=== PATIENT | male | born 1960 | race Caucasian/White ===

== ENCOUNTER → 2019-12-30 | Outpatient (CLI) | payer BC ==
[~2019-12-30] MED LIST: CATHETER FLUSH 10 ML SYR IV PRN
--- NOTE | 2019-12-30 13:07 | Diagnostic Imaging Report ---
INDICATION: Right upper quadrant pain. TECHNIQUE: The patient was administered 5.1 mCi of technetium 99m Choletec intravenously and imaging over the abdomen was performed. At 1 hour, the patient ingested one can of Ensure and a gallbladder ejection fraction was calculated. FINDINGS: There is homogeneous uptake of activity by the liver. Prompt excretion of activity into the gallbladder and common duct is noted. There is normal passage of activity into the small bowel. The gallbladder ejection fraction is 91%. IMPRESSION: 1. Patent cystic duct and common bile duct. 2. Gallbladder ejection fraction of 91%. Dictated by: Dictated on workstation # [id number]
== END ==
LOC: CARD 09:30
PROVIDERS: ATTEND Family Medicine
DX: R10.11 Right upper quadrant pain (principal)
CPT/HCPCS: 78227; A9537

== ENCOUNTER 2021-01-29 13:46 | Emergency (ER) | payer BC ==
[~2021-01-29] VITALS: Ht 180.3 cm; Wt 69.4 kg
[2021-01-29] MEDS ORDERED: PANTOPRAZOLE 40 MG (PROTONIX) VIAL IV STA (13:59)
[2021-01-29] MEDS ORDERED: fentaNYL INJ 100 MCG/2 ML AMP IVP STA (13:59)
[2021-01-29] MEDS ORDERED: NITROGLYCERIN 2% OINT 1 GM UNIT DOSE PACKET TOP STA (13:59)
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
[2021-01-29 14:20] LABS: MEAN CORPUSCULAR HEMOGLOBIN 29 pg (25-34); WHITE BLOOD COUNT 7.4 10^3/uL (4.3-11.0)
[2021-01-29 14:21] LABS: BASOPHILS % (AUTO) 1 % (0-10); EOSINOPHILS % (AUTO) 14 % (0-10); HEMATOCRIT 38 % (40-54); LYMPHOCYTES % (AUTO) 26 % (12-44); MEAN CORPUSCULAR HGB CONC 34 g/dL (32-36); MEAN CORPUSCULAR VOLUME 87 fL (80-99); MEAN PLATELET VOLUME 11.1 fL (9.0-12.2); MONOCYTES # (AUTO) 0.6 X 10^3 (0.0-1.0); MONOCYTES % (AUTO) 8 % (0-12); NEUTROPHILS # (AUTO) 3.7 X 10^3 (1.8-7.8); NEUTROPHILS % (AUTO) 50 % (42-75); PLATELET COUNT 207 10^3/uL (130-400)
[2021-01-29 14:22] LABS: BASOPHILS # (AUTO) 0.1 10^3/uL (0.0-0.1); EOSINOPHILS # (AUTO) 1.1 10^3/uL (0.0-0.3)
[2021-01-29 14:37] LABS: BAND NEUTROPHILS 1 %; BASOPHILS % (MANUAL) 2 %; EOSINOPHILS % (MANUAL) 13 %; LYMPHOCYTES % (MANUAL) 31 %; MONOCYTES % (MANUAL) 4 %; NEUTROPHILS % (MANUAL) 48 %
[2021-01-29 14:38] LABS: PLATELET ESTIMATE ADEQUATE; RBC MORPH NORMAL
[2021-01-29 14:41] LABS: CARBON DIOXIDE 25 MMOL/L (21-32); CHLORIDE 104 MMOL/L (98-107); POTASSIUM 3.3 MMOL/L (3.6-5.0); SODIUM 138 MMOL/L (135-145)
[2021-01-29 14:42] LABS: ALANINE AMINOTRANSFERASE 19 U/L (0-55); ALBUMIN 3.9 GM/DL (3.2-4.5); ALKALINE PHOSPHATASE 166 U/L (40-136); BILIRUBIN,TOTAL 0.5 MG/DL (0.1-1.0); BUN/CREATININE RATIO 7; CALCIUM 8.5 MG/DL (8.5-10.1); CREATININE SERUM 1.35 MG/DL (0.60-1.30); GFR ESTIMATED 54; GLUCOSE 102 MG/DL (70-105); MAGNESIUM 1.9 MG/DL (1.6-2.4); TOTAL PROTEIN 6.2 GM/DL (6.4-8.2)
[2021-01-29 14:43] LABS: LIPASE 37 U/L (8-78)
[2021-01-29 14:47] LABS: INR 1.1 (0.8-1.4); PROTHROMBIN TIME PATIENT 14.1 SEC (12.2-14.7)
[2021-01-29 14:59] LABS: CLARITY,URINE CLEAR; COLOR,URINE PALE YELLOW
[2021-01-29 15:01] LABS: AMPHETAMINE SCREEN, URINE NEGATIVE (NEGATIVE); BACTERIA,URINE NEGATIVE /HPF; BARBITURATE SCREEN URINE NEGATIVE (NEGATIVE); BENZODIAZEPINES SCREEN URINE NEGATIVE (NEGATIVE); BILIRUBIN,URINE NEGATIVE (NEGATIVE); CANNABINOID SCREEN, URINE NEGATIVE (NEGATIVE); COCAINE SCREEN URINE NEGATIVE (NEGATIVE); GLUCOSE, URINE (UA) NEGATIVE (NEGATIVE); KETONES,URINE NEGATIVE (NEGATIVE); LEUKOCYTE ESTERASE ,URINE NEGATIVE (NEGATIVE); METHADONE STAT NEGATIVE (NEGATIVE); METHAMPHETAMINE SCREEN URINE S NEGATIVE (NEGATIVE); NITRITE,URINE NEGATIVE (NEGATIVE); OPIATE SCREEN URINE NEGATIVE (NEGATIVE); PH,URINE 5.5 (5-9); PROTEIN,URINE NEGATIVE (NEGATIVE); SQUAMOUS EPITHELIAL CELL,UR 0-2 /HPF; TRICYCLIC ANTIDEPRESSANTS SCRE NEGATIVE (NEGATIVE); WBC,URINE 0-2 /HPF
[2021-01-29 15:02] LABS: OXYCODONE STAT NEGATIVE (NEGATIVE); PROPOXYPHENE STAT NEGATIVE (NEGATIVE)
--- NOTE | 2021-01-29 15:20 | Diagnostic Imaging Report ---
INDICATION: Chest pain COMPARISON: 03/10/2015. FINDINGS: Single frontal view of the chest demonstrates normal heart size and pulmonary vascularity. Left-sided dual-lead pacemaker is noted. The lungs are well aerated and clear. No large pleural effusion or pneumothorax is seen. The visualized osseous structures show no acute abnormality. IMPRESSION: No acute cardiopulmonary process. Dictated by: Dictated on workstation # [id number]
--- NOTE | 2021-01-29 16:08 | Diagnostic Imaging Report ---
INDICATION: Dysarthria. TECHNIQUE: Routine non contrast-enhanced axial images were obtained from the skull base to the vertex. Auto Exposure Controls were utilized during the CT exam to meet ALARA standards for radiation dose reduction COMPARISON: None. FINDINGS: The ventricles and cortical sulci are age appropriate. There is no midline shift or mass-effect. No acute intra-axial hemorrhage is seen. There are no abnormal areas of increased or decreased density to suggest acute hemorrhage or edema. No extra-axial masses or collections are present. The bony calvarium is intact. The visualized paranasal sinuses show mild scattered mucosal thickening. There is also complete opacification of the right frontal sinus. The mastoid air cells are clear. IMPRESSION: 1. No acute intracranial abnormality. No CT evidence of mass, acute infarct or intracranial hemorrhage. 2. Paranasal sinus disease. Dictated by: Dictated on workstation # [id number]
[2021-01-29 16:35] VITALS: BP 158/72
== END 2021-01-29 16:34 | disposition home or self-care (01) ==
LOC: EDUNIT# 13:46 → ER FS 13:47
DX: K21.00 Gastro-esophageal reflux disease with esophagitis, without bleeding (principal); E86.0 Dehydration; R29.818 Other symptoms and signs involving the nervous system; I10 Essential (primary) hypertension; Z95.0 Presence of cardiac pacemaker
CPT/HCPCS: 36415; 70450; 71045; 80053; 80306; 81000; 83690; 83735; 83880; 84484; 85007; 85027; 85610; 85730; 93041; 99284; G0480; 80320